=== PATIENT | female | born 1990 | race Caucasian/White ===

== ENCOUNTER 2019-06-02 18:49 | Emergency (ER) | payer SELFPAY ==
[2019-06-02 18:58] VITALS: BP 128/96
[2019-06-02] MEDS ORDERED: IBUPROFEN 800 MG TABLET PO ONE (18:58)
--- NOTE | 2019-06-02 19:03 | ER Document Report ---
HPI - HPI Patient complains to provider of: Sore throat fever Time Seen by Provider: 06/02/19 18:54 Onset: Other - Pain Level: 1 Context: 28-year-old female presents emergency department with complaints of sore throat and fever since . She reports she has been exposed to strep. Denies vomiting reports some diarrhea. Patient reports she is eating drinking voiding without problems. Reports it hurts to swallow. Reports taking Tylenol Motrin for the fever. Reports last Tylenol was a couple hours ago and last Motrin 8 hours ago. Associated Symptoms: Fever, Sore throat Exacerbated by: Denies Relieved by: Denies Similar symptoms previously: No Recently seen / treated by doctor: No - CONSTITUTIONAL Constitutional: DENIES: Fever, Chills - REPRODUCTIVE Reproductive: DENIES: : Past Medical History - General Information source: Patient - Social History Smoking Status: Current Every Day Smoker Chew tobacco use (# tins/day): No Frequency of alcohol use: None Drug Abuse: None Lives with: Family Family History: None Patient has suicidal ideation: No Patient has homicidal ideation: No - Medical History Medical History: Negative Surgical Hx: Negative Vertical Provider Document - CONSTITUTIONAL Agree With Documented VS: Yes Exam Limitations: No Limitations General Appearance: WD/WN, No Apparent Distress - INFECTION CONTROL TRAVEL OUTSIDE OF THE [place] IN LAST 30 DAYS: No - HEENT HEENT: Atraumatic, Normocephalic, Pharyngeal Erythema - No exudate good airway mouth wide no trismus. negative: Conjuctival Injection, Pharyngeal Exudate, Tympanic Membrane Red, Tympanic Membrane Bulging - NECK Neck: Normal Inspection, Supple. negative: Lymphadenopathy-Left, Lymphadenopathy-Right - RESPIRATORY Respiratory: Breath Sounds Normal, No Respiratory Distress - CARDIOVASCULAR Cardiovascular: Regular Rate, Regular Rhythm - MUSCULOSKELETAL/EXTREMETIES Musculoskeletal/Extremeties: KAN HCAN - NEURO Level of Consciousness: Awake, Alert, Appropriate Motor/Sensory: No Motor Deficit - DERM Integumentary: Warm, Dry, No Rash Course - Re-evaluation Re-evalutation: 06/02/19 19:02 28-year-old presents with sore throat fever for the past few days. Reports she is taken Tylenol Motrin. Reports last Tylenol was a couple hours ago and last Motrin was 8 hours ago. 06/02/19 20:09 Strep test was negative. Patient was to be treated with penicillin Decadron due to symptoms and due to recent exposure to strep. She was instructed on this instructed on throat culture pending. Patient was instructed to follow-up with her primary care return here for any trouble swallowing or concerns. She verbalized understanding. Laboratory 06/02/19 19:01 Group A Strep Rapid NEGATIVE - Vital Signs Vital signs: Temp Pulse Resp BP Pulse Ox 98 F 105 H 16 128/96 H 100 06/02/19 18:55 06/02/19 18:55 06/02/19 18:55 06/02/19 18:55 06/02/19 18:55 Discharge - Discharge Clinical Impression: Fever, Sore throat Condition: Stable Disposition: HOME, SELF-CARE Instructions: Fever ([facility]), Use of [id number]-Ipt-Hivvtvv Ibuprofen ([facility]), Penicillins ([facility]), Sore Throat ([facility]), Steroid Medication Injection Additional Instructions: *You have been evaluated for a sore throat, fever, strep exposure *Your strep test was negative. A throat culture is pending. You may be contacted in 3 to 4 days should you need a different antibiotic. *You have received an injection of penicillin and steroids *In the meantime gargle with warm salt water and suck on throat lozenges *Change her toothbrush in 2 days. *Do not let anyone drink/eat after you *Good hand washing, push fluids stay well-hydrated *Follow-up with a primary care provider within 1 week for recheck *Return to ED for worsening condition change, needs, unable to swallow, concerns Forms: Elevated Blood Pressure, Return to Work
[2019-06-02] MEDS ORDERED: DEXAMETHASONE SOD PHOS INJ 10 MG/1 ML VIAL IM ONE (19:40)
[2019-06-02] MEDS ORDERED: PENICILLIN G BENZATHINE 1.2 MILLION UNIT/2 ML DISP.SYRIN IM ONE (19:40)
== END 2019-06-02 20:03 | disposition home or self-care (01) ==
LOC: ER 18:49
DX: J02.9 Acute pharyngitis, unspecified (principal); R50.9 Fever, unspecified; F17.200 Nicotine dependence, unspecified, uncomplicated
CPT/HCPCS: 99283; 96372; 87070; 87880; J0561; J1100

== ENCOUNTER → 2019-08-08 | Outpatient (CLI) | payer BC ==
[2019-08-08 10:34] VITALS: BP 126/58
--- NOTE | 2019-08-08 10:34 | ER RDC ASSESSMENT REPORT ---
Intake - In the Last 14 days Have you traveled outside [place]?: No Have you been in close contact with someone CONFIRMED: Yes Worked in Healthcare?: No - Symptoms Subjective Fever([place] feverish): Yes Chills: Yes Muscule Aches: Yes Runny Nose: Yes Sore Throat: Yes Cough (New or worsening chronic cough): Yes Shortness of breath: Yes Nausea or Vomiting: No Headache: Yes Abdominal Pain: No Diarrhea(3 or more loose stools in last 24 hours): Yes - Do you have any of the following Chronic lung disease: Asthma or emphysema or COPD: No Cystic Fibrosis: No Diabetes: No High Blood Pressure: No Cardiovascular Disease: No Chronic Kidney Disease: No Chronic Liver Disease: No Chronic blood disorder like Sickle Cell Disease: No Weak immune system due to disease or medication: No Neurologic condition that limits movement: No Developmental delay - Moderate to Severe: No Recent (within past 2 weeks) or current : No Morbid Obesity (>100 pounds over ideal weight): No - Objective Temperature: 97.2 F Pulse Rate: 88 Respiratory Rate: 18 Blood Pressure: 126/58 O2 Sat by Pulse Oximetry: 98 Objective: Given above, testing performed: If Testing Performed: Test Specimen Type Sent to General - General Information source: Patient Notes: Patient presents today RTC for testing for the coronavirus. Patient reports fever, cough, chills, runny nose sore throat. Patient states she has had some shortness of breath and headache pain. Patient is a smoker. - HPI Onset: Other - 3 days - Related Data Allergies/Adverse Reactions: No Known Allergies Allergy (Verified 06/02/19 18:54) Past Medical History - General Information source: Patient - Social History Smoking Status: Current Every Day Smoker Family History: None - Medical History Medical History: Negative Past Surgical History: Reports: Other - Skin graft Physical Exam - Notes Notes: Full physical exam could not be performed due to covid 19 isolation protocols. Constitutional: Nontoxic appearance, no acute distress Eyes: Nonicteric, extraocular movements intact, sclera clear ENT: Posterior pharynx clear, no tonsillar exudates, no tonsillar hypertrophy Cardiovascular: Rate and rhythm regular, no JVD Respiratory: Sounds clear bilaterally, nonlabored breathing, no use of accessory muscles, no tachypnea Gastrointestinal: Abdomen not distended Muculoskeletal: Moves all extremities well Skin: Normal color Neuro: Awake alert oriented, normal speech Psych: Normal mood and affect Diagnostic Results Laboratory Results: The patient was evaluated during the global Covid 19 pandemic, and that diagnosis was suspected/considered upon their initial presentation. Their evaluation, treatment and testing was consistent with current guidelines for patients who present with complaints or symptoms that may be related to Covid 19. Patient presents with upper respiratory symptoms worrisome for possible Covid 19. Patient does not have emergency worrying symptoms such as difficulty breathing, shortness of breath, chest pain, pressure, confusion or cyanosis. Patient appears suitable for discharge as they are not of an advanced age, do not have any chronic medical conditions such as diabetes, CAD, immune deficiency, chronic lung disease or chronic kidney disease. Patient's vital signs are stable and patient is nontoxic in appearance. Good return precautions have been discussed with patient, patient verbalized understanding and is agreeable with discharge plan of care at this time. Patient Education/Counseling Counseling/Education: Patient was provided with discharge information including: As a person under investigation for Covid 19, the [place] department of Health and Human Services, division of public health advises you to adhere to the following guidance until your test results are reported to you. If your test result is positive, you will receive additional information from your provider and your local health department at that time. Remain at home until you are cleared by the health provider or public health authorities. Keep a log of visitors to your home, notify any visitors to your home of your is olation status. If you plan to move to a new address or leave the critical access hospital, notify the local health department in your County. Call your doctor or seek care if you have an urgent medical need. Before seeking medical care, call ahead to get instructions from the provider before arriving at the medical office clinic or hospital. Notify them that you are being tested for the virus that causes Covid 19 so that arrangements can be made, as necessary, to prevent transmission to others in the healthcare setting. Next, notify the local health department in your county. If a medical emergency arises and you need to call 911, inform the first responders that you are being tested for the virus that causes Covid 19. Next, notify the local health department in your county. RDC Discharge - Discharge Clinical Impression: COVID-19 screening Upper respiratory infection Qualifiers: URI type: unspecified URI Qualified Code(s): J06.9 - Acute upper respiratory infection, unspecified Condition: Stable Disposition: Home; Selfcare
[2019-08-08 12:23] LABS: A TYPE INFLUENZA AG NEGATIVE (NEGATIVE); B INFLUENZA AG NEGATIVE (NEGATIVE)
== END ==
LOC: RDC 09:47
PROVIDERS: ATTEND Nurse Practitioner Family
DX: Z20.828 Contact with and (suspected) exposure to other viral communicable diseases (principal); J06.9 Acute upper respiratory infection, unspecified; R50.9 Fever, unspecified; R05 Cough; J02.9 Acute pharyngitis, unspecified; R06.02 Shortness of breath; R09.89 Other specified symptoms and signs involving the circulatory and respiratory systems; M79.10 Myalgia, unspecified site; R51 Headache; R19.7 Diarrhea, unspecified; F17.200 Nicotine dependence, unspecified, uncomplicated
CPT/HCPCS: 87070; 87635; 87804; 87880; 99211